=== PATIENT | female | born 1935 ===

== ENCOUNTER 2024-08-17 12:45 | Day surgery (SDC) | payer MEDICARE, BC ==
[~2024-08-17] VITALS: Ht 157.5 cm; Wt 59.1 kg
[~2024-08-17 12:45] MED LIST: LR 1,000 ML IV SCH
[2024-08-17] MEDS ORDERED: ARICEPT10 MG PO (13:43)
[2024-08-17] MEDS ORDERED: SINEMET 25/101 UDTAB PO (13:45)
[2024-08-17] MEDS ORDERED: LINZESS72 MCG PO (13:48)
[2024-08-17] MEDS ORDERED: MIRAPEX0.25 MG PO (13:50)
[2024-08-17] MEDS ORDERED: DESYREL 50MG50 MG PO (13:52)
[2024-08-17] MEDS ORDERED: CRESTOR20 MG PO (13:52)
[2024-08-17] MEDS ORDERED: PROTONIX 40MG T40 MG PO (13:53)
[2024-08-17] MEDS ORDERED: TYLENOL 500MG500 MG PO (13:56)
[2024-08-17] MEDS ORDERED: RT ALBUTER2.5 MG/0.5 IH (13:57)
[2024-08-17] MEDS ORDERED: VITAMIN C500 MG PO (13:59)
[2024-08-17] MEDS ORDERED: VITAMIN D31000 I1 PO (14:01)
[2024-08-17] MEDS ORDERED: CLARITIN 1010 MG/TAB PO (14:01)
[2024-08-17] MEDS ORDERED: CRANBERRY450 MG (14:02)
[2024-08-17] MEDS ORDERED: IRON TABLETS325 MG PO (14:04)
[2024-08-17] MEDS ORDERED: MELATONIN5 M1 SL (14:05)
[2024-08-17] MEDS ORDERED: GENTEAL MILD 1515 M1 OP (14:06)
[2024-08-17] MEDS ORDERED: B-12 500 MCG PO (14:07)
[2024-08-17 14:12] VITALS: BP 189/72; PULSE 66; TEMP 98
[2024-08-17] MEDS ORDERED: Lidocaine PF 2% (20 MG/ML) 5 ML VIAL ONE (14:17)
[2024-08-17] MEDS ORDERED: fentaNYL 50 MCG/ML 2 ML VIAL ONE (14:17)
[2024-08-17] MEDS ORDERED: NS 10 ML IV ONE (14:20)
[2024-08-17] MEDS ORDERED: Ondansetron 4 MG/2 ML VIAL ONE (14:20)
[2024-08-17] MEDS ORDERED: dexAMETHasone 10 MG/ML VIAL ONE (14:20)
[2024-08-17] MEDS ORDERED: HYDROmorphone 1 MG/1 ML SYRINGE [PACU/SDC ONLY] IV PRN (16:00)
[2024-08-17] MEDS ORDERED: fentaNYL 50 MCG/ML 1 ML SYRINGE/VIAL [PACU/SDC ONLY] IV PRN (16:00)
[2024-08-17] MEDS ORDERED: hydrALAZINE 20 MG/ML 1 ML VIAL IV PRN (16:00)
[2024-08-17] MEDS ORDERED: Acetaminophen 325 MG TAB PO PRN (16:15)
[2024-08-17] MEDS ORDERED: Hyoscyamine 0.125 MG Sublingual TAB SL PRN (16:15)
[2024-08-17] MEDS ORDERED: Naloxone 0.4 MG/ML VIAL IV PRN (16:15)
[2024-08-17] MEDS ORDERED: Ondansetron 4 MG/2 ML VIAL IV PRN (16:15)
[2024-08-17 16:45] VITALS: BP 166/62; PULSE 84; TEMP 97.4
[2024-08-17 17:00] VITALS: BP 160/60; PULSE 70
[2024-08-17] MEDS ORDERED: Acetaminophen 500 MG TAB PO SCH (17:12)
[2024-08-17 17:15] VITALS: BP 148/59; PULSE 83
--- NOTE | 2024-08-17 18:09 | NUR ---
1645: PT TO BAY 1 VIA COT FROM PACU. REPORT RECEIVED FROM NOHEMI LLAMAS. VSS. PT ALERT AND DROWSEY. DRESSING TO SUPRAPUBIC CATHETER PLACEMENT C/D/I. NO URINE IN DRAINAGE BAG AT THIS TIME. PT DENIES PAIN OR NAUSEA. TOLERATING ICE CHIPS AND REQUESTING MUFFIN. NO FURTHER NEEDS NOTED. RESTING IN COT. CALL LIGHT IN REACH. DAUGHTERBRIE, AT BEDSIDE. 1700: ALERT AND ORIENTED. VSS. CLEAR, YELLOW URINE NOTED IN DRAINAGE BAG. PT C/O SOME SORENESS. WARM BLANKET PROVIDED. NO C/O NAUSEA. TOLERATING MUFFIN AND WATER. 1715: ALERT AND ORIENTED. VSS. CLEAR, YELLOW URINE NOTED IN DRAINAGE BAG. NO FURTHER C/O PAIN OR SORENESS. NO C/O NAUSEA. IV DC'D AT THIS TIME. ASSISTED DAUGHTER WITH DRESSSING PT. 1730: DISCHARGE INSTRUCTIONS COMPLETE. PT AND DAUGHTER STATED UNDERSTANDING OF DISCHARGE AND FOLLOW-UP CARE. DISCHARGE PAPERWORK GIVEN TO PT. QUESTIONS WELCOMED AND ANSWERED. 1745: PT FROM COT TO WHEELCHAIR X2 ASSIST. OFF UNIT AT THIS TIME. PT DISCHARGED TO HOME VIA PERSONAL VEHICLE WITH DAUGHTERBRIE.
== END 2024-08-17 17:45 | disposition home or self-care (01) ==
LOC: SDCO 12:45
DX: N31.9 Neuromuscular dysfunction of bladder, unspecified (principal); N39.0 Urinary tract infection, site not specified; R39.14 Feeling of incomplete bladder emptying
CPT/HCPCS: C1769; J0360; J0665; J0690; J1100; J2405; J2704; J3010; J7120